=== PATIENT | male | born 2000 ===

== ENCOUNTER 2021-10-15 02:31 | Emergency (ER) | payer OTHER ==
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
[2021-10-15 02:44] VITALS: BP 143/65
--- NOTE | 2021-10-15 08:44 | XRAY Report ---
PROCEDURE: Finger(s) RT INDICATIONS: injury, pain, tenderness TECHNIQUE: AP hand, 3 views of the right fourth finger(s) acquired. COMPARISON: None FINDINGS: Bones: No fractures or dislocations. No suspicious bony lesions. Soft tissues: No suspicious soft tissue calcifications. IMPRESSION: No visible fractures or dislocation. Final interpretation is concordant with preliminary report. Reviewed by: Lilly Rose MD on 10/15/2021 8:43 AM PDT Approved by: Lilly Rose MD on 10/15/2021 8:43 AM PDT Station ID: [id number]
== END 2021-10-15 04:27 | disposition home or self-care (01) ==
LOC: ED 02:31
DX: S63.614A Unspecified sprain of right ring finger, initial encounter (principal); W50.0XXA Accidental hit or strike by another person, initial encounter
CPT/HCPCS: 99282; 99283